=== PATIENT | female | born 1985 | race Caucasian/White ===

== ENCOUNTER → 2017-05-30 | Outpatient (CLI) | payer OTHER ==
[~2017-05-30] MED LIST: MTR600X PO; OXYC-57 PO; PRENTAB26 PO
[2017-05-30 12:12] LABS: BASO % 0.3 %; BASO ABS # 0.02 K/uL (0-0.2); EOS % 0.8 %; EOS ABS # 0.06 K/uL (0-0.5); HEMOGLOBIN 13.4 g/dL (12.0-16.0); IG# 0.02 K/uL (0.00-0.02); LYMPH % 17.2 %; LYMPH ABS # 1.36 K/uL (1.2-3.4); MEAN CELL VOLUME 91.1 fL (80-100); MEAN CORPUSCULAR HEMOGLOBIN 31.3 pg (25-34); MEAN CORPUSCULAR HGB CONC 34.4 g/dl (32-36); MEAN PLATELET VOLUME 10.9 fL (7.4-10.4); MONO % 6.6 %; MONO ABS # 0.52 K/uL (0.11-0.59); NEUT % 74.8 %; NEUT ABS # 5.93 K/uL (1.4-6.5); PLATELET COUNT 291 K/uL (130-400); RED CELL DISTRIBUTION WIDTH CV 12.4 % (11.5-14.5); RED CELL DISTRIBUTION WIDTH SD 41.3 fL (36.4-46.3); WHITE BLOOD COUNT 7.91 K/uL (4.8-10.8)
== END | disposition home or self-care (01) ==
LOC: C.LAB1850 10:29
PROVIDERS: ATTEND Obstetrics & Gynecology
DX: Z34.81 Encounter for supervision of other normal pregnancy, first trimester (principal)

== ENCOUNTER 2017-06-23 10:17 | Emergency (ER) | payer OTHER ==
[~2017-06-23] VITALS: Ht 157.5 cm; Wt 65.2 kg
[~2017-06-23 10:17] MED LIST changes: -MTR600X PO; -OXYC-57 PO
[2017-06-23 10:18] VITALS: TEMP 36.9; Ht 157.5 cm; Wt 65.2 kg
[2017-06-23] MEDS ORDERED: ACETAMINOPHEN 500 MG TAB PO STA (10:54)
[2017-06-23] MEDS ORDERED: ONDANSETRON INJ 2 MG/ML 2 ML VIAL IV STA (10:54)
[2017-06-23] MEDS ORDERED: MoRPHine SULFATE 4 MG/ML 1 ML CARP\\VIAL IV STA (10:54)
--- NOTE | 2017-06-23 10:55 | EMERGENCY ROOM VISIT NOTE ---
History Report prepared by Roland: Juan Crespo Under the Supervision of: Dr. Roman Caicedo M.D. First contact with patient: 10:31 Chief Complaint: KIDNEY STONE Stated Complaint: L SIDED BACK PAIN, KIDNEY STONES History of Present Illness The patient is a 31 year old white female with a past medical history of 13 weeks who presents to the ED with a cc of worsening on and off left sided back pain beginning last night that radiates into her abdomen that is worse with urination. Positive vomiting this morning and pain with urination. Negative vaginal bleeding or hematuria. She denies any past surgeries, alcohol use, tobacco use, and drug use. Source of History: patient Onset: last night Position: back (left lower) Timing: worsening, other (on and off) Modifying Factors (Worsening): urination Associated Symptoms: + vomiting, + abdominal pain, + urinary symptoms Review of Systems See HPI for pertinent positives and negatives. A total of ten systems were reviewed and were otherwise negative. Past Medical & Surgical Medical Problems: (1) No Known Active Medical Problems Family History FH: cancer FHx: hypertension Pulmonary embolism Social History Smoking Status: Never Smoker Marital Status: Housing Status: lives with family Occupation Status: employed Current/Historical Medications Scheduled Multivit/Min/Iron/Fol Ac/Pren ( Vitamin), 1 TAB PO 4XWK Allergies Coded Allergies: No Known Allergies (Unverified , 06/23/17) Physical Exam Vital Signs Date Time Temp Pulse Resp B/P (MAP) Pulse Ox O2 Delivery O2 Flow Rate FiO2 06/23/17 14:16 69 16 105/63 99 Room Air 06/23/17 12:28 71 16 103/60 96 Room Air 06/23/17 12:21 65 06/23/17 10:18 36.9 75 18 120/71 99 Room Air Physical Exam GENERAL: Awake, alert, well-appearing, NAD HENT: Normocephalic, atraumatic. EYES: Normal conjunctiva. Sclera non-icteric. NECK: Supple. No nuchal rigidity. FROM. RESPIRATORY: CTAB, no rhonchi, wheezing, crackles CARDIAC: RRR, no MRG ABDOMEN: Left flank discomfort. Fundal height below the umbilicus. Soft, NTND, BS+ MSK: No chest wall TTP, no LE edema NEURO: GCS 15, CN 2-12 intact, moves all 4s on command SKIN: No rash or jaundice noted. Medical Decision & Procedures ER Provider Diagnostic Interpretation: Radiology results as stated below per my review and radiologist interpretation: ULTRASOUND KIDNEYS AND BLADDER CLINICAL HISTORY: Flank pain. COMPARISON STUDY: No priors. TECHNIQUE: Real-time, grayscale, and color flow sonography of the kidneys and bladder is performed. Images are reviewed in the transverse and longitudinal planes. FINDINGS: Kidneys: The kidneys are normal in size and echotexture. The right kidney measures 11.1 cm in length and the left kidney measures 11.8 cm in length. There is no hydronephrosis. No shadowing renal calculi are identified. A 5 mm echogenic focus in the right lower pole may present a tiny angiomyolipoma. There is no sonographic evidence of contour deforming renal mass lesion. No perinephric fluid is identified. Bladder: The bladder is normal in appearance. Bilateral ureteral jets were seen. IMPRESSION: Unremarkable sonographic assessment of the kidneys and bladder. Electronically signed by: Aly Magana M.D. 06/23/2017 1:20 PM Dictated Date/Time: 06/23/2017 1:19 PM Laboratory Results 06/23/17 11:05 Red Blood Count 4.17, Mean Corpuscular Volume 90.2, Mean Corpuscular Hemoglobin 31.4, Mean Corpuscular Hemoglobin Concent 34.8, Mean Platelet Volume 10.5, Neutrophils (%) (Auto) 84.1, Lymphocytes (%) (Auto) 10.9, Monocytes (%) (Auto) 4.3, Eosinophils (%) (Auto) 0.2, Basophils (%) (Auto) 0.2, Neutrophils # (Auto) 8.34, Lymphocytes # (Auto) 1.08, Monocytes # (Auto) 0.43, Eosinophils # (Auto) 0.02, Basophils # (Auto) 0.02 06/23/17 11:05 Test 06/23/17 11:05 06/23/17 11:39 06/23/17 13:13 White Blood Count 9.92 K/uL (4.8-10.8) Red Blood Count 4.17 M/uL (4.2-5.4) Hemoglobin 13.1 g/dL (12.0-16.0) Hematocrit 37.6 % (37-47) Mean Corpuscular Volume 90.2 fL (80-100) Mean Corpuscular Hemoglobin 31.4 pg (25-34) Mean Corpuscular Hemoglobin Concent 34.8 g/dl (32-36) Platelet Count 256 K/uL (130-400) Mean Platelet Volume 10.5 fL (7.4-10.4) Neutrophils (%) (Auto) 84.1 % Lymphocytes (%) (Auto) 10.9 % Monocytes (%) (Auto) 4.3 % Eosinophils (%) (Auto) 0.2 % Basophils (%) (Auto) 0.2 % Neutrophils # (Auto) 8.34 K/uL (1.4-6.5) Lymphocytes # (Auto) 1.08 K/uL (1.2-3.4) Monocytes # (Auto) 0.43 K/uL (0.11-0.59) Eosinophils # (Auto) 0.02 K/uL (0-0.5) Basophils # (Auto) 0.02 K/uL (0-0.2) RDW Standard Deviation 41.0 fL (36.4-46.3) RDW Coefficient of Variation 12.7 % (11.5-14.5) Immature Granulocyte % (Auto) 0.3 % Immature Granulocyte # (Auto) 0.03 K/uL (0.00-0.02) Anion Gap 8.0 mmol/L (3-11) Est Creatinine Clear Calc Drug Dose 143.0 ml/min Estimated GFR () 149.6 Estimated GFR (Non- 129.0 BUN/Creatinine Ratio 12.4 (10-20) Calcium Level 9.0 mg/dl (8.5-10.1) Urine Color YELLOW Urine Appearance CLEAR (CLEAR) Urine pH 7.5 (4.5-7.5) Urine Specific [place] 1.009 (1.000-1.030) Urine Protein NEG (NEG) Urine Glucose (UA) NEG (NEG) Urine Ketones NEG (NEG) Urine Occult Blood NEG (NEG) Urine Nitrite NEG (NEG) Urine Bilirubin NEG (NEG) Urine Urobilinogen NEG (NEG) Urine Leukocyte Esterase TRACE (NEG) Urine WBC (Auto) 1-5 /hpf (0-5) Urine RBC (Auto) 0-4 /hpf (0-4) Urine Hyaline Casts (Auto) 0 /lpf (0-5) Urine Epithelial Cells (Auto) 20-30 /lpf (0-5) Urine Bacteria (Auto) NEG (NEG) Human Chorionic Gonadotropin, Quant 69487 mIU/mL Laboratory results reviewed by [place] Course 1031: The patient was evaluated in room C4. A complete history and physical exam was performed. 1228: I reevaluated the patient, and she was having no pain and waiting for her ultrasound 1345: I reevaluated the patient, and she was doing well. 1410: I reevaluated the patient. Discussed results and discharge instructions: she verbalized understanding and agreement. The patient is ready for discharge. Medical Decision The patient is a 31 year old white female with a past medical history of 13 weeks who presents to the ED with a cc of worsening on and off left sided back pain beginning last night that radiates into her abdomen that is worse with urination. Differential diagnosis: Etiologies such as renal colic, appendicitis, diverticulitis, mesenteric ischemia, aortic pathology, infections, inflammatory bowel disease, PUD, biliary pathology, UTI, as well as others were entertained. Patient was seen and evaluated the bedside. Patient is a 002 that approximately 13 weeks by LMP presents with a chief complaint of left flank pain. Patient states the pain has been worsening. Patient Nexus may be kidney stone. Patient denies any hematuria or dysuria. Patient does have some mild left-sided CVA TTP. Patient does not have any noted abdominal tenderness. Patient has complained of some mild nausea. Bedside ultrasound did show a single IUP with a heart rate of 152. Bilateral kidneys did show question a trace hydronephrosis but nothing obvious. Bladder was fairly decompressed. Patient did have blood work completed, urinalysis and a retroperitoneal ultrasound. Patient was also given pain and nausea medications. White blood cell count of 9000. Patient's work fairly unremarkable. Patient's urinalysis negative for blood or infection. Patient's ultrasound showed ureteral jets and no signs of hydronephrosis. 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 Patient does have an appointment on Friday. Patient had no recurrence of her pain. This may be a muscular skeletal or some round ligament type pain. We also discussed that the stone that had passed. Patient was deemed suitable for outpatient follow- up and treatment at this time. Patient was given strict follow-up, discharge, and return precautions. All questions were answered. Patient was deemed suitable for outpatient follow-up at this time. Patient agreed with the plan of care and was safely discharged home. The chart was completed utilizing [employer] Speech voice recognition software. Grammatical errors, random word insertions, pronoun errors, and incomplete sentences are an occasional consequence of this system due to software limitations, ambient noise, and hardware issues. Any formal questions or concerns about the content, text, or information contained within the body of this dictation should be directly addressed to the physician for clarification. Medication Reconcilliation Current Medication List: was personally reviewed by me Blood Pressure Screening Patient's blood pressure: Normal blood pressure Impression Primary Impression: Left flank pain Additional Impression: and not yet delivered in second trimester Scribe Attestation The scribe's documentation has been prepared under my direction and personally reviewed by me in its entirety. I confirm that the note above accurately reflects all work, treatment, procedures, and medical decision making performed by me. Departure Information Dispostion Home / Self-Care Referrals No Doctor, Assigned (PCP) Forms HOME CARE DOCUMENTATION FORM, IMPORTANT VISIT INFORMATION Patient Instructions ED Flank Pain Uncertain Cause, My [facility] Additional Instructions Please return to the emergency department if you have worsening or recurrent symptoms not amenable to at-home treatment. Please call for a follow-up appointment with her primary care physician. Please take your medications as prescribed. If you have other concerns and/or complaints please feel free to also call your primary care physician's office or return the ED for further evaluation, management, and treatment. You may take tylenol 1000 mg every 6 hours as needed for pain. Take your medications as prescribed. If taking an antibiotic consider taking a probiotic and/or eating yogurt, but at the least, please take with food as it can cause upset stomach. If culture results are not available at discharge, if they are positive for concern of infection, you will be informed of the results as soon as they are available. If you were seen between 11pm and 7AM all radiology reads will be re-read by our in house staff. If any eliu You have been examined and treated today on an emergency basis only. This is not a substitute for, or an effort to provide, complete comprehensive medical care. It is impossible to recognize and treat all injuries or illnesses in a single emergency department visit. It is therefore important that you follow up closely with [facility], your PCP, and/or yor discrepancies are discovered, you will be notified.ur specialist(s). Call as soon as possible for an appointment. Thank you for your time and consideration. I look forward to speaking with you again soon. Please don't hesitate to call us if you have any questions. Problem Qualifiers
[2017-06-23 11:31] LABS: BASO % 0.2 %; BASO ABS # 0.02 K/uL (0-0.2); EOS % 0.2 %; EOS ABS # 0.02 K/uL (0-0.5); HEMATOCRIT 37.6 % (37-47); HEMOGLOBIN 13.1 g/dL (12.0-16.0); IG# 0.03 K/uL (0.00-0.02); LYMPH % 10.9 %; LYMPH ABS # 1.08 K/uL (1.2-3.4); MEAN CELL VOLUME 90.2 fL (80-100); MEAN CORPUSCULAR HEMOGLOBIN 31.4 pg (25-34); MEAN CORPUSCULAR HGB CONC 34.8 g/dl (32-36); MEAN PLATELET VOLUME 10.5 fL (7.4-10.4); MONO % 4.3 %; MONO ABS # 0.43 K/uL (0.11-0.59); NEUT % 84.1 %; NEUT ABS # 8.34 K/uL (1.4-6.5); PLATELET COUNT 256 K/uL (130-400); RED CELL DISTRIBUTION WIDTH CV 12.7 % (11.5-14.5); WHITE BLOOD COUNT 9.92 K/uL (4.8-10.8)
[2017-06-23 11:52] LABS: CREATININE 0.51 mg/dl (0.60-1.20); POTASSIUM 3.5 mmol/L (3.5-5.1)
--- NOTE | 2017-06-23 13:21 | DIAGNOSTIC IMAGING REPORT ---
ULTRASOUND KIDNEYS AND BLADDER CLINICAL HISTORY: Flank pain. COMPARISON STUDY: No priors. TECHNIQUE: Real-time, grayscale, and color flow sonography of the kidneys and bladder is performed. Images are reviewed in the transverse and longitudinal planes. FINDINGS: Kidneys: The kidneys are normal in size and echotexture. The right kidney measures 11.1 cm in length and the left kidney measures 11.8 cm in length. There is no hydronephrosis. No shadowing renal calculi are identified. A 5 mm echogenic focus in the right lower pole may present a tiny angiomyolipoma. There is no sonographic evidence of contour deforming renal mass lesion. No perinephric fluid is identified. Bladder: The bladder is normal in appearance. Bilateral ureteral jets were seen. IMPRESSION: Unremarkable sonographic assessment of the kidneys and bladder. Electronically signed by: Aly Magana M.D. 06/23/2017 1:20 PM Dictated Date/Time: 06/23/2017 1:19 PM
[2017-06-23 14:16] VITALS: BP 105/63; PULSE 69; O2SAT 99
== END 2017-06-23 14:32 | disposition home or self-care (01) ==
LOC: C.EDB 10:18 → C.EDC 14:32
DX: R10.9 Unspecified abdominal pain (principal); O26.892 Other specified pregnancy related conditions, second trimester; Z3A.13 13 weeks gestation of pregnancy; Z80.9 Family history of malignant neoplasm, unspecified; Z82.49 Family history of ischemic heart disease and other diseases of the circulatory system

== ENCOUNTER → 2017-07-24 | Outpatient (CLI) | payer OTHER | END | disposition home or self-care (01) | LOC: C.LAB1850 10:38 | PROVIDERS: ATTEND Obstetrics & Gynecology | DX: Z34.82 Encounter for supervision of other normal pregnancy, second trimester (principal) ==

== ENCOUNTER → 2017-10-09 | Outpatient (CLI) | payer OTHER ==
[2017-10-09 12:11] LABS: HEMATOCRIT 34.7 % (37-47); HEMOGLOBIN 11.8 g/dL (12.0-16.0)
== END | disposition home or self-care (01) ==
LOC: C.LAB1850 09:11
PROVIDERS: ATTEND Obstetrics & Gynecology
DX: Z34.83 Encounter for supervision of other normal pregnancy, third trimester (principal); Z3A.00 Weeks of gestation of pregnancy not specified

== ENCOUNTER 2017-12-25 09:59 | Inpatient (IN) | payer OTHER ==
[~2017-12-25] VITALS: Ht 160 cm; Wt 73.0 kg
[2017-12-25] MEDS ORDERED: LACTATED RINGER'S 1000ML 1,000 ML IV PRN (10:40)
[2017-12-25] MEDS ORDERED: LACTATED RINGER'S 1000ML 500 ML IV PRN ×2 (10:50→18:12)
[2017-12-25] MEDS ORDERED: PENICILLIN G POTASSIUM IV 6 MU in DEXTROSE 5% 250ML 250 ML IV ONE (11:00)
[2017-12-25] MEDS ORDERED: OXYTOCIN 30 UNITS/500ML NSS IV PRN (11:00)
[2017-12-25] MEDS: LACTATED RINGER'S 1000ML 1,000 ML IV SCH ×2 (11:05→14:14)
[2017-12-25 11:19] LABS: HEMATOCRIT 36.4 % (37-47); HEMOGLOBIN 12.2 g/dL (12.0-16.0); MEAN CELL VOLUME 90.3 fL (80-100); MEAN CORPUSCULAR HEMOGLOBIN 30.3 pg (25-34); PLATELET COUNT 219 K/uL (130-400); RED CELL DISTRIBUTION WIDTH CV 13.4 % (11.5-14.5); RED CELL DISTRIBUTION WIDTH SD 43.9 fL (36.4-46.3); WHITE BLOOD COUNT 9.27 K/uL (4.8-10.8)
[2017-12-25 11:24] LABS: MEAN CORPUSCULAR HGB CONC 33.5 g/dl (32-36)
[2017-12-25 11:31] VITALS: Ht 160 cm; Wt 73.0 kg
[2017-12-25] MEDS ORDERED: PENICILLIN G POTASSIUM IV 3 MU in DEXTROSE 5% 100ML 100 ML IV PRN (15:00)
[2017-12-25] MEDS ORDERED: LACTATED RINGER'S 1000ML 1,000 ML IV ONE (16:14)
[2017-12-25] MEDS ORDERED: CITRIC ACID/SODIUM CITRATE 15 ML UDC PO ONE (16:15)
[2017-12-25] MEDS ORDERED: CEFAZOLIN IV 2,000 MG in SYRINGE 0 ML IV ONE (16:30)
[2017-12-25] MEDS ORDERED: METOCLOPRAMIDE HCL INJ 5 MG/ML 2 ML VIAL ONE (16:42)
[2017-12-25] MEDS ORDERED: EpHEDrine SULFATE INJ 50 MG/ML AMP ONE (16:42)
[2017-12-25] MEDS ORDERED: MoRPHine SULFATE PF 1 MG/ML 10 ML AMP/VIAL ONE (16:42)
[2017-12-25] MEDS ORDERED: PHENYLEPHRINE HCL INJ 10 MG/ML VIAL ONE (16:42)
[2017-12-25] MEDS ORDERED: FENTANYL CITRATE INJ 50 MCG/1 ML 2 ML VIAL ONE (16:42)
[2017-12-25] MEDS ORDERED: OXYTOCIN INJ 10 UNITS/ML VIAL ONE (16:42)
[2017-12-25] MEDS ORDERED: ONDANSETRON INJ 2 MG/ML 2 ML VIAL ONE (16:42)
[2017-12-25] MEDS ORDERED: LACTATED RINGER'S 1000ML 1,000 ML IV SCH (18:05)
--- NOTE | 2017-12-25 18:05 | [facility] Post Operative Brief Note ---
Immediate Operative Summary Operative Date Dec 25, 2017. Pre-Operative Diagnosis 39 weeks, External cephalic version, Persistant Category 3 tracing, Concern for abruption Post-Operative Diagnosis Same as PreOp Procedure(s) Performed Primary low transverse section Surgeon Anselmo Robles DO Family Physician Surgeon(s) Igor Rangel RN Estimated Blood Loss 500ml Findings Consistent with Post-Op Diagnosis Viable female , Apgars 8, 10. Weight 5#14 Fluids (cc crystalloids) 2L Specimens Cord Blood, cord gases Drains [place], clear yellow 150cc Anesthesia Type Spinal Complication(s) none Disposition Accompanied Pt To Recover: no Disposition: L&D
[2017-12-25] MEDS ORDERED: SODIUM CHLORIDE 0.9% 1000ML 1,000 ML IV PRN (18:12)
[2017-12-25] MEDS ORDERED: NALOXONE HCL INJ 1 MG in SODIUM CHLORIDE 0.9% 1000ML 1,000 ML IV PRN ×4 (18:12)
[2017-12-25] MEDS ORDERED: NALOXONE HCL INJ 0.08 MG in SYRINGE 1.8 ML IV PRN (18:12)
[2017-12-25] MEDS ORDERED: NO NARCOTICS OR SEDATIVES SCH (18:15)
[2017-12-25] MEDS ORDERED: BENZOCAINE 20% AER SPR 82.5 GM CAN EXT PRN (18:15)
[2017-12-25] MEDS ORDERED: ONDANSETRON INJ 2 MG/ML 2 ML VIAL IV PRN ×2 (18:15)
[2017-12-25] MEDS ORDERED: MEPERIDINE HCL 25 MG/ML CARP IV PRN (18:15)
[2017-12-25] MEDS ORDERED: SUPERCREAM 0.870 % 15GM JAR EXT PRN (18:15)
[2017-12-25] MEDS ORDERED: MAGNESIUM HYDROXIDE SUSP 30 ML UDC PO PRN (18:15)
[2017-12-25] MEDS ORDERED: PROMETHAZINE HCL INJ 25 MG in SODIUM CHLORIDE 0.9% 50ML 50 ML IV PRN ×2 (18:15)
[2017-12-25] MEDS ORDERED: EpHEDrine SULFATE INJ 50 MG/ML AMP IV PRN ×2 (18:15)
[2017-12-25] MEDS ORDERED: HYDROCORTISONE ACETATE 25 MG SUPP PR PRN (18:15)
[2017-12-25] MEDS ORDERED: LANOLIN OINT EXT PRN (18:15)
[2017-12-25] MEDS ORDERED: MoRPHine SULFATE 2 MG/ML CARP IV PRN (18:15)
[2017-12-25] MEDS ORDERED: KETOROLAC TROMETHAMINE 30 MG/ML VIAL IV. PRN (18:15)
[2017-12-25] MEDS ORDERED: NALBUPHINE HCL INJ 10 MG/ML 10ML VIAL IV PRN (18:15)
[2017-12-25] MEDS ORDERED: DiphenhydrAMINE HCL 50 MG/ML VIAL IV PRN ×2 (18:15)
[2017-12-25] MEDS ORDERED: ATROPINE SULFATE 0.1 MG/ML 5ML SYR IV PRN (18:15)
[2017-12-25] MEDS ORDERED: NALOXONE HCL 0.4 MG/1 ML VIAL/CARP IV PRN (18:15)
[2017-12-25] MEDS ORDERED: DC INTRASPINAL MORPHINE SCH (18:15)
[2017-12-25] MEDS ORDERED: MoRPHine SULFATE PF 1 MG/ML 10 ML AMP/VIAL EPI PRN (18:15)
[2017-12-25] MEDS ORDERED: OXYCODONE/ACETAMINOPHEN 5-325 TAB PO PRN ×2 (18:15)
--- NOTE | 2017-12-25 18:15 | Anesthesiology Progress Note ---
Anesthesia Post Op Note Date & Time Dec 25, 2017 at 18:14 Notes Mental Status: alert / awake / arousable, participated in evaluation Pt Amnestic to Procedure: Yes Nausea / Vomiting: adequately controlled Pain: adequately controlled Airway Patency, RR, SpO2: stable & adequate BP & HR: stable & adequate Hydration State: stable & adequate Neuraxial Anesthesia: was administered, sensory block is resolving Anesthetic Complications: no major complications apparent
--- NOTE | 2017-12-25 18:22 | [facility] Operative Report ---
Operative Report Operative Date Dec 25, 2017. Pre-Operative Diagnosis 39 weeks, External cephalic version, Persistant Category 3 tracing, Concern for abruption Post-Operative Diagnosis Same as PreOp Procedure(s) Performed Primary low transverse section Surgeon Anselmo Robles DO Narcotics And Vice Detective Surgeon(s) Igor Rangel RN Estimated Blood Loss 500ml Findings Viable female , Apgars 8, 10. Weight 5#14 Fluids 2L Specimens Cord Blood, cord gases Drains [place], clear yellow 150cc Anesthesia Type Spinal Complication(s) none Disposition no L&D Indications 32-year-old G 3 p2002 at 39 weeks 0 days who presented from the office today after a routine visit and was found to have transverse lie of the fetus. External cephalic version was performed, this was successful in turning baby to a cephalic presentation and Pitocin was started. The baby began to have persistent category 3 tracing with recurrent late decelerations. This was not alleviated by resuscitative measures. I recommended to patient that, since station was still high and she was only dilated to 3 cm, and the nonreassuring tracing, that we proceed to delivery by section. She was agreeable. Description of Procedure Patient was seen in her labor and delivery room, where risks benefits and alternatives to section were discussed. Informed consent was obtained. We proceeded to the operating room. She underwent spinal anesthesia , and was prepared and draped in the usual sterile fashion. Adequate anesthesia was confirmed. Timeout was confirmed. A Pfannenstiel skin incision was made with a scalpel and carried through to the underlying layer of fascia. The fascia was nicked at midline, and this incision was extended bilaterally using blunt dissection. The superior aspect of the fascial incision was grasped with [place] clamps 2, elevated off the underlying rectus abdominis muscles, and bluntly dissected. In a similar fashion, the inferior aspect of this incision was dissected. The rectus abdominis muscles were at midline, and the peritoneum was entered bluntly digitally. This incision was extended bluntly. A bladder flap was created, the bladder blade was replaced. The low transverse uterine incision was made with a new scalpel, and this incision was extended manually. The baby was delivered from a cephalic presentation, the head was delivered followed by anterior and posterior shoulders, followed by body. Baby began to cry on the field. The cord was doubly clamped and cut, the baby was then handed off to the waiting rubber block layer. A cord sample was obtained for cord gases. Cord blood was obtained, and the placenta was then delivered spontaneously intact with a three-vessel cord. The uterus was then exteriorized , it was cleared of all clots and debris, and was firming nicely. Pitocin was started. The hysterotomy incision was reapproximated using a running locked stitch of 0 Vicryl. A second layer of the same suture was used to imbricate the incision. The posterior uterus was evaluated and found to be normal, the hysterotomy was observed and found to be hemostatic. The uterus was returned to the abdomen, the hysterotomy incision was again reviewed and found to be hemostatic. The gutters were cleared of all clots and debris. The fascial incision was reapproximated using 0 Vicryl in a running stitch. The subcutaneous tissue was irrigated. It was then reapproximated using 2-0 plain gut suture in a running stitch. The skin was reapproximated using 4-0 Vicryl in a running subcuticular stitch. Steri-Strips and a dressing were applied. Patient and baby tolerated the delivery well. Sponge, instrument, needle counts were correct at the conclusion of the case 2. I attest to the content of the Intraoperative Record and any orders documented therein. Any exceptions are noted below.
[2017-12-25] MEDS: OXYTOCIN INJ 30 UNITS in LACTATED RINGER'S 1000ML 1,000 ML IV SCH (18:55)
[2017-12-25 20:50] VITALS: BP 123/47; PULSE 73; TEMP 36.6; O2SAT 99
[2017-12-25 21:45] VITALS: O2SAT 100
[2017-12-25] MEDS: DOCUSATE SODIUM 100 MG CAP PO SCH (21:47)
[2017-12-25] MEDS: SIMETHICONE 80 MG CHEW PO SCH (21:48)
[2017-12-25 23:05] VITALS: O2SAT 99
[2017-12-25 23:30] VITALS: BP 114/63; PULSE 71; TEMP 37; O2SAT 98
[2017-12-26] VITALS (13 sets, daily range): BP systolic 107–122; BP diastolic 61–67; PULSE 61–73; TEMP 36.3–36.8; O2SAT 97–100
[2017-12-26] MEDS: KETOROLAC TROMETHAMINE 30 MG/ML VIAL IV. PRN ×2 (01:20→07:38)
[2017-12-26] MEDS: OXYTOCIN INJ 30 UNITS in LACTATED RINGER'S 1000ML 1,000 ML IV SCH (03:28)
[2017-12-26] MEDS ORDERED: CEFAZOLIN IV 2,000 MG in DEXTROSE 5% 50ML 50 ML IV SCH (06:00)
[2017-12-26 06:59] LABS: BASO % 0.1 %; BASO ABS # 0.01 K/uL (0-0.2); EOS % 0.3 %; EOS ABS # 0.04 K/uL (0-0.5); HEMATOCRIT 32.4 % (37-47); IG# 0.03 K/uL (0.00-0.02); LYMPH % 8.5 %; MEAN CELL VOLUME 90.8 fL (80-100); MEAN CORPUSCULAR HEMOGLOBIN 30.8 pg (25-34); MEAN PLATELET VOLUME 11.1 fL (7.4-10.4); MONO % 6.8 %; NEUT ABS # 9.83 K/uL (1.4-6.5); PLATELET COUNT 174 K/uL (130-400); RED CELL DISTRIBUTION WIDTH CV 13.4 % (11.5-14.5); WHITE BLOOD COUNT 11.71 K/uL (4.8-10.8)
--- NOTE | 2017-12-26 07:03 | Progress Note ---
Subjective Dec 26, 2017. Subjective conversation w/ patient, conversation w/ family, physical exam, chart review, lab review Ambulation: limited ambulation Voiding: ramires catheter in place Passing Gas: No Diet Tolerance: Clear Liquids Lochia: Small Feeding Type: Breast Feeding Problem List Medical Problems: (1) 39 weeks gestation of (2) No Known Active Medical Problems Review of Systems Constitutional: No fever, No chills Respiratory: No cough, No wheezing, No shortness of breath Cardiac: No chest pain Abdomen: No nausea, No vomiting Objective Vital Signs Date Time Temp Pulse Resp B/P (MAP) Pulse Ox O2 Delivery O2 Flow Rate FiO2 12/26/17 06:47 16 100 12/26/17 03:00 36.8 72 16 107/61 (76) 99 Room Air 12/26/17 03:00 16 99 12/26/17 02:15 18 100 12/26/17 01:15 18 97 12/26/17 00:05 16 99 12/25/17 23:30 98 Room Air 12/25/17 23:30 18 98 12/25/17 23:30 37.0 71 18 114/63 (80) 98 Room Air 12/25/17 23:05 18 99 12/25/17 21:45 18 100 12/25/17 20:50 99 Room Air 12/25/17 20:50 20 99 12/25/17 20:50 36.6 73 20 123/47 (72) 99 Room Air 12/25/17 20:50 99 Room Air Physical Exam General Appearance: WELL-APPEARING, WD/WN Respiratory/Chest: lungs clear, normal breath sounds, no respiratory distress, no accessory muscle use Cardiovascular: regular rate, rhythm, no gallop, no murmur Abdomen: normal bowel sounds Extremities: + pedal edema Laboratory Results Last 24 Hours Test 12/25/17 10:55 12/26/17 06:30 White Blood Count 9.27 K/uL 11.71 K/uL Red Blood Count 4.03 M/uL 3.57 M/uL Hemoglobin 12.2 g/dL 11.0 g/dL Hematocrit 36.4 % 32.4 % Mean Corpuscular Volume 90.3 fL 90.8 fL Mean Corpuscular Hemoglobin 30.3 pg 30.8 pg Mean Corpuscular Hemoglobin Concent 33.5 g/dl 34.0 g/dl RDW Standard Deviation 43.9 fL 44.0 fL RDW Coefficient of Variation 13.4 % 13.4 % Platelet Count 219 K/uL 174 K/uL Mean Platelet Volume 11.0 fL 11.1 fL Neutrophils (%) (Auto) 84.0 % Lymphocytes (%) (Auto) 8.5 % Monocytes (%) (Auto) 6.8 % Eosinophils (%) (Auto) 0.3 % Basophils (%) (Auto) 0.1 % Neutrophils # (Auto) 9.83 K/uL Lymphocytes # (Auto) 1.00 K/uL Monocytes # (Auto) 0.80 K/uL Eosinophils # (Auto) 0.04 K/uL Basophils # (Auto) 0.01 K/uL Immature Granulocyte % (Auto) 0.3 % Immature Granulocyte # (Auto) 0.03 K/uL Medications Current Inpatient Medications Medications (Trade) Dose Ordered Sig/Reyna Route Start Time Stop Time Status Last Admin Dose Admin Penicillin G Potassium 3 mu/ Dextrose 106 ml @ 100 mls/hr Q4H PRN IV 12/25/17 15:00 12/27/17 14:59 12/25/17 15:06 100 MLS/HR Lactated Ringer's 1,000 ml @ 125 mls/hr Q8H IV 12/25/17 10:40 12/27/17 10:39 12/25/17 14:14 125 MLS/HR Lactated Ringer's 1,000 ml @ 999 mls/hr Q1H1M PRN IV 12/25/17 10:40 01/24/18 10:39 Oxytocin (Pitocin IV) 30 units UD PRN IV 12/25/17 11:00 01/24/18 10:59 12/25/17 13:53 30 UNITS Lactated Ringer's 500 ml @ 999 mls/hr Q31M PRN IV 12/25/17 10:50 01/24/18 10:49 Oxytocin 30 units/ Lactated Ringer's 1,003 ml @ 125 mls/hr Q8H2M IV 12/25/17 18:05 01/24/18 18:04 12/26/17 03:28 125 MLS/HR Lactated Ringer's 1,000 ml @ 125 mls/hr Q8H IV 12/25/17 18:05 01/24/18 18:04 Ibuprofen (Motrin Tab) 600 mg Q4H PRN PO 12/25/17 18:15 01/24/18 18:14 Promethazine HCl 25 mg/Sodium Chloride 51 ml @ 204 mls/hr Q4H PRN IV 12/25/17 18:15 01/24/18 18:14 Bisacodyl (Dulcolax Tab) 5 mg HS ONCE PO 12/26/17 22:00 12/26/17 22:01 Docusate Sodium (coLACE CAP) 100 mg BID PO 12/25/17 20:00 01/24/18 19:59 Magnesium Hydroxide (Milk Of Magnesia Susp) 30 ml HS PRN PO 12/25/17 18:15 01/24/18 18:14 Cocaine HCl (Supercream 0.870% Cr) BID PRN EXT 12/25/17 18:15 01/08/18 18:14 Lanolin (Lanolin Oint) PRN PRN EXT 12/25/17 18:15 01/24/18 18:14 Hydrocortisone Acetate (Anusol Hc Supp) 25 mg BID PRN OR 12/25/17 18:15 01/24/18 18:14 Benzocaine (Dermoplast Aero Spr) 1 appln PRN PRN EXT 12/25/17 18:15 01/24/18 18:14 Simethicone (Mylicon Chew Tab) 80 mg QID PO 12/25/17 20:51 01/24/18 20:59 Naloxone HCl (Narcan Inj) 0.1 mg UD PRN IV 12/25/17 18:15 12/26/17 12:00 Diphenhydramine HCl (Benadryl Inj) 25 mg Q6H PRN IV 12/25/17 18:15 12/26/17 12:00 Nalbuphine HCl (Nubain Inj) 5 mg Q10M PRN IV 12/25/17 18:15 12/26/17 12:00 Naloxone HCl 1 mg/ Sodium Chloride 1,002.5 ml @ 50 mls/hr Q20H3M PRN IV 12/25/17 18:12 12/26/17 12:00 Ondansetron HCl (Zofran Inj) 4 mg Q6H PRN IV 12/25/17 18:15 12/26/17 12:00 Promethazine HCl 25 mg/Sodium Chloride 51 ml @ 200 mls/hr Q6H PRN IV 12/25/17 18:15 12/26/17 12:00 Naloxone HCl 1 mg/ Sodium Chloride 1,002.5 ml @ 50 mls/hr Q20H3M PRN IV 12/25/17 18:12 12/26/17 12:00 Ketorolac Tromethamine (Toradol Inj) 30 mg Q6H PRN IV. 12/25/17 18:15 12/26/17 12:00 12/26/17 01:20 30 MG Meperidine HCl (Demerol Inj) 25 mg Q15M PRN IV 12/25/17 18:15 12/26/17 12:00 Miscellaneous Information (Dc Intraspinal Morphine) 1 ea ONE N/A 12/25/17 18:15 12/26/17 12:00 Miscellaneous Information (No Narcotics Or Sedatives) 1 ea UD N/A 12/25/17 18:15 12/26/17 12:00 Naloxone HCl 0.08 mg/Syringe 2 ml @ 1 mls/min Q2M PRN IV 12/25/17 18:12 12/26/17 12:00 Diphenhydramine HCl (Benadryl Cap) 50 mg HS PRN PO 12/25/17 18:15 12/26/17 12:00 Morphine Sulfate (MoRPHine SULFATE INJ) 2 mg Q6H PRN IV 12/25/17 18:15 12/26/17 12:00 Lactated Ringer's 500 ml @ 999 mls/hr Q31M PRN IV 12/25/17 18:12 12/26/17 12:00 Ephedrine Sulfate (EpHEDrine SULFATE INJ) 10 mg Q5M PRN IV 12/25/17 18:15 12/26/17 12:00 Morphine Sulfate (Duramorph Pf Inj) TODAY PRN EPI 12/25/17 18:15 12/26/17 12:00 Sodium Chloride 1,000 ml @ 15 mls/hr Q24H PRN IV 12/25/17 18:12 12/26/17 12:00 Ketorolac Tromethamine (Toradol Inj) 30 mg Q6H PRN IV. 12/26/17 12:00 12/31/17 11:59 Oxycodone/ Acetaminophen (Percocet 5-325mg Tab) 1 tab Q4H PRN PO 12/26/17 12:00 01/09/18 11:59 Oxycodone/ Acetaminophen (Percocet 5-325mg Tab) 2 tab Q4H PRN PO 12/26/17 12:00 01/09/18 11:59 Ondansetron HCl (Zofran Inj) 4 mg Q4H PRN IV 12/26/17 12:00 01/25/18 11:59 Diphenhydramine HCl (Benadryl Cap) 25 mg QID PRN PO 12/26/17 12:00 01/25/18 11:59 Diphenhydramine HCl (Benadryl Inj) 25 mg QID PRN IV 12/26/17 12:00 01/25/18 11:59 Assessment and Plan Problem List Medical Problems: (1) Left flank pain Status: Acute (2) Status: Acute (3) and not yet delivered in second trimester Status: Acute Post-Op Day#: 1 Continue Routine Care: - Vital signs reviewed and within normal limits - Will D/C ramires today and advance diet as tolerated - Will monitor and manage pain with PRN Analgesics - Encourage ambulation, breast feeding - All questions and concerns addressed Resident Physician Supervision Note: I was present with Dr. Thomas during the history and exam. I discussed the case with the resident and agree with the findings and plan as documented in the note. Any exceptions or clarifications are listed here: POD#1 doing well. Will plan to ambulate, advance diet, increase PO fluids. Documented By: Mi Robles
[2017-12-26] MEDS: SIMETHICONE 80 MG CHEW PO SCH ×4 (07:39→20:00)
[2017-12-26] MEDS: DOCUSATE SODIUM 100 MG CAP PO SCH ×2 (07:39→20:00)
[2017-12-26] MEDS ORDERED: KETOROLAC TROMETHAMINE 30 MG/ML VIAL IV. PRN (12:00)
[2017-12-26] MEDS ORDERED: ONDANSETRON INJ 2 MG/ML 2 ML VIAL IV PRN (12:00)
[2017-12-26] MEDS ORDERED: OXYCODONE/ACETAMINOPHEN 5-325 TAB PO PRN ×2 (12:00)
[2017-12-26] MEDS ORDERED: DiphenhydrAMINE HCL 50 MG/ML VIAL IV PRN (12:00)
[2017-12-26] MEDS: IBUPROFEN 600 MG TAB PO PRN ×3 (12:03→20:35)
[2017-12-26] MEDS ORDERED: BISACODYL 5 MG TABEC PO ONE (22:00)
[2017-12-27] MEDS: IBUPROFEN 600 MG TAB PO PRN ×6 (01:24→23:53)
[2017-12-27] MEDS ORDERED: MTR600X PO (05:53)
[2017-12-27] MEDS ORDERED: OXYC-57 PO (05:53)
--- NOTE | 2017-12-27 06:08 | Discharge Instructions ---
Discharge Instructions Date of Service Dec 27, 2017. Admission Reason for Admission: 39 Weeks Gestation Of Discharge Discharge Diagnosis / Problem: section delivery Discharge Goals Goal(s): Routine recovery after Medications Continue Dispensed Medications: lansinoh Activity Recommendations Activity Limitations: per Instructions/Follow-up section . Instructions / Follow-Up Instructions / Follow-Up ACTIVITY RECOMMENDATIONS: * Gradual return to full activity over the next 2-3 weeks. * No lifting - nothing heavier than baby over the next 2-3 weeks. * Do not engage in vigorous exercise, sexual activity or sports until cleared by your physician. * Do not drive or operate any motorized equipment until cleared by your physician. * You may shower/bathe daily. MEDICATIONS: For discomfort or pain, you may use Acetaminophen (Tylenol), Ibuprofen (Advil), or Naproxen (Aleve) following the package directions. For constipation you may use Colace following the package directions. BREAST CARE: If you are not breast feeding: * Wear a supportive bra 24 hours a day for one to two weeks. * Avoid stimulating your breasts and nipples as much as possible during the first few weeks after delivery. * When taking a shower, have the warm water hit your back, not breasts. * When your breasts feel full, apply ice packs. Usually three to four times a day helps ease the discomfort. * Take a mild pain medication (Tylenol / Motrin) when you are uncomfortable. If breast feeding: * Use breast milk to lubricate nipples. Lansinoh cream may be used for sore nipples. You do not need to remove cream prior to breast feeding. If using a different brand of cream, check the label for directions regarding removal of cream prior to nursing. * Wear a supportive bra. * If having problems with breasts or breast feeding, call a technical healthcare consultant or your health care provider. SPECIAL CARE INSTRUCTIONS: When you are discharged from the hospital, it is important for you to follow the instructions listed below: * During the first week at home, you should be able to care for yourself and your baby. In addition, the usual light household activities are encouraged. * Limit your activities to the way you feel. Do not try to clean the house or move furniture. Be sensible. * If you actively engage in sports and have done so up until the time of your delivery, you may resume these activities as soon as you feel able. This may take up to one month or even longer. Use good judgment. * Continue to take your vitamins for at least six weeks after the of your baby. * Your diet need not be limited unless you were on a special diet before your delivery. Breast-feeding mothers need around 2500 calories per day and at least 64-80 ounces of fluid per day (8 to 10 glasses). * You should eat foods from the four major food groups. Crash diets or fad diets are to be avoided. Eating lean meats, fresh fruits and vegetables, low-fat dairy products, high fiber foods and a regular exercise program, will help you get back to your pre- weight without putting your health at risk. * Constipation is sometimes a problem after delivery. Take a mild laxative as needed. If breast feeding, Milk of Magnesia is acceptable to use. You may use a suppository or Fleets enema. * A daily shower or tub bath is suggested. Wash incision daily with warm soapy water and pat dry. It doesn't need to be covered unless drainage is present. * A bloody vaginal discharge will usually continue until around four weeks . A small amount of bleeding may continue for as long as six weeks. Vaginal discharge changes from the bright red bleeding after delivery to pink then brownish and finally yellowish-pink before becoming white and disappearing. * Bleeding may increase with activity. Your first period may come in 4-8 weeks. If you are breast feeding, your period may be delayed even longer. * [place] (sex) can begin whenever both you and your partner feel comfortable and do not have any form of genital infection. It is recommended that you wait at least six weeks for internal and external healing to occur. If you have questions, please talk to your health care practitioner. A condom should be used to prevent infection and . * Foreplay, gentle intercourse and lubrication is very important the first several times to prevent pain. A water-based lubricant such as K-Y jelly or Astroglide may be used. * If you have RH negative blood and your baby is RH positive, you will receive RHOGAM by injection prior to discharge. The nurse will give you a card to keep with you that has the date and place that you received RHOGAM after delivery. * During your care, you had a Rubella screen done to check for the presence of rubella antibodies in your blood. If your test was negative, you will receive a Rubella vaccine prior to discharge. This vaccine may cause a fever, soreness at the injection site and flu-like symptoms. If these symptoms persist, notify your health care practitioner. is not advised for one month after a Rubella vaccine. * Verbalizes understanding of car seat law as reviewed with patient nursing. * Car Seat hand-out given and reviewed with patient by nursing. * Shaken baby information reviewed with patient by nursing. Call you doctor if: * Heavy bleeding (saturating several pads an hour) or passing clots the size of your fist. * A fever >101 degrees F (38.3 degrees C) on two occasions four hours apart and /or chills. * Unusual pain in the pelvic or vaginal areas. * Call the doctor for any increased redness, drainage or swelling around the incision and any pain unrelieved by prescribed pain medication. * "Baby Blues" lasting longer than two weeks. If you have any questions or concerns, call your health care practitioner at . FOLLOW UP VISIT: * Please call the office at to schedule a 6 week examination. It is important you keep this appointment. It is important for you to make arrangements for either yearly or twice yearly check-ups thereafter. Current Hospital Diet Patient's current hospital diet: Regular OB Diet Discharge Diet Recommended Diet: Regular OB Diet Procedures Procedures Performed: Primary low transverse section Pending Studies Studies pending at discharge: no Medical Emergencies . Who to Call and When: Medical Emergencies: If at any time you feel your situation is an emergency, please call 311 immediately. . Non-Emergent Contact Non-Emergency issues call your: Core Worker . . "Provider Documentation" section prepared by Tanya Beach . [place] Drug Monitoring Program Search Results: no issues identified
--- NOTE | 2017-12-27 06:47 | Progress Note ---
Subjective Dec 27, 2017. Subjective conversation w/ patient, physical exam, chart review, lab review Ambulation: ambulating normally Voiding: no voiding problems Passing Gas: Yes Diet Tolerance: Regular Diet Lochia: Small Feeding Type: Breast Feeding Problem List Medical Problems: (1) 39 weeks gestation of (2) No Known Active Medical Problems Review of Systems Constitutional: No fever Respiratory: No shortness of breath Cardiac: No chest pain Abdomen: No nausea, No vomiting Objective Vital Signs Date Time Temp Pulse Resp B/P (MAP) Pulse Ox O2 Delivery O2 Flow Rate FiO2 12/26/17 23:30 Room Air 12/26/17 23:30 36.3 67 18 122/64 (83) Room Air 12/26/17 15:35 Room Air 12/26/17 15:32 36.8 68 20 108/61 (77) Room Air 12/26/17 12:05 36.7 73 16 117/67 (84) 100 Room Air 12/26/17 11:45 16 100 12/26/17 10:43 16 100 12/26/17 09:45 16 98 12/26/17 08:45 16 99 12/26/17 07:45 Room Air 12/26/17 07:45 36.6 61 16 108/66 (80) 100 Room Air 12/26/17 07:45 16 100 12/26/17 06:47 16 100 Physical Exam General Appearance: WELL-APPEARING, WD/WN Respiratory/Chest: no respiratory distress, no accessory muscle use Fundus: Firm, Non-Tender, Relation to Umbilicus (inferior to umbilicus) Incision Description: Clean, Dry & Intact Laboratory Results Last 24 Hours Test 12/27/17 06:00 Medications Current Inpatient Medications Medications (Trade) Dose Ordered Sig/Reyna Route Start Time Stop Time Status Last Admin Dose Admin Penicillin G Potassium 3 mu/ Dextrose 106 ml @ 100 mls/hr Q4H PRN IV 12/25/17 15:00 12/27/17 14:59 12/25/17 15:06 100 MLS/HR Lactated Ringer's 1,000 ml @ 125 mls/hr Q8H IV 12/25/17 10:40 12/27/17 10:39 12/25/17 14:14 125 MLS/HR Lactated Ringer's 1,000 ml @ 999 mls/hr Q1H1M PRN IV 12/25/17 10:40 01/24/18 10:39 Oxytocin (Pitocin IV) 30 units UD PRN IV 12/25/17 11:00 01/24/18 10:59 12/25/17 13:53 30 UNITS Lactated Ringer's 500 ml @ 999 mls/hr Q31M PRN IV 12/25/17 10:50 01/24/18 10:49 Oxytocin 30 units/ Lactated Ringer's 1,003 ml @ 125 mls/hr Q8H2M IV 12/25/17 18:05 01/24/18 18:04 12/26/17 03:28 125 MLS/HR Lactated Ringer's 1,000 ml @ 125 mls/hr Q8H IV 12/25/17 18:05 01/24/18 18:04 Ibuprofen (Motrin Tab) 600 mg Q4H PRN PO 12/25/17 18:15 01/24/18 18:14 12/27/17 05:51 600 MG Promethazine HCl 25 mg/Sodium Chloride 51 ml @ 204 mls/hr Q4H PRN IV 12/25/17 18:15 01/24/18 18:14 Docusate Sodium (coLACE CAP) 100 mg BID PO 12/25/17 20:00 01/24/18 19:59 12/26/17 20:00 100 MG Magnesium Hydroxide (Milk Of Magnesia Susp) 30 ml HS PRN PO 12/25/17 18:15 01/24/18 18:14 12/26/17 20:00 30 ML Cocaine HCl (Supercream 0.870% Cr) BID PRN EXT 12/25/17 18:15 01/08/18 18:14 Lanolin (Lanolin Oint) PRN PRN EXT 12/25/17 18:15 01/24/18 18:14 Hydrocortisone Acetate (Anusol Hc Supp) 25 mg BID PRN GA 12/25/17 18:15 01/24/18 18:14 Benzocaine (Dermoplast Aero Spr) 1 appln PRN PRN EXT 12/25/17 18:15 01/24/18 18:14 Simethicone (Mylicon Chew Tab) 80 mg QID PO 12/25/17 20:51 01/24/18 20:59 12/26/17 20:00 80 MG Ketorolac Tromethamine (Toradol Inj) 30 mg Q6H PRN IV. 12/26/17 12:00 12/31/17 11:59 Oxycodone/ Acetaminophen (Percocet 5-325mg Tab) 1 tab Q4H PRN PO 12/26/17 12:00 01/09/18 11:59 12/26/17 12:02 1 TAB Oxycodone/ Acetaminophen (Percocet 5-325mg Tab) 2 tab Q4H PRN PO 12/26/17 12:00 01/09/18 11:59 Ondansetron HCl (Zofran Inj) 4 mg Q4H PRN IV 12/26/17 12:00 01/25/18 11:59 Diphenhydramine HCl (Benadryl Cap) 25 mg QID PRN PO 12/26/17 12:00 01/25/18 11:59 Diphenhydramine HCl (Benadryl Inj) 25 mg QID PRN IV 12/26/17 12:00 01/25/18 11:59 Cyclobenzaprine HCl (Flexeril Tab) 5 mg TID PO 12/27/17 08:00 01/26/18 07:59 UNV Assessment and Plan Problem List Medical Problems: (1) Left flank pain Status: Acute (2) Status: Acute (3) and not yet delivered in second trimester Status: Acute Post-Op Day#: 2 Continue Routine Care: Resident Physician Supervision Note: I was present with Dr. Sowmya Thomas during the history and exam. I discussed the case with the resident and agree with the findings and plan as documented in the note. Any exceptions or clarifications are listed here: [None] Documented By: Tanya Sierra - Vital signs reviewed and within normal limits - Encourage , ambulation - Will monitor and control pain with PRN analgesics - All questions and concerns addressed
[2017-12-27 07:40] LABS: HEMATOCRIT 34.2 % (37-47); HEMOGLOBIN 11.1 g/dL (12.0-16.0)
[2017-12-27] MEDS: CYCLOBENZAPRINE HCL 5 MG TAB PO SCH ×3 (08:00→20:00)
[2017-12-27] MEDS: DOCUSATE SODIUM 100 MG CAP PO SCH ×2 (08:47→20:20)
[2017-12-27] MEDS: SIMETHICONE 80 MG CHEW PO SCH ×4 (08:48→20:20)
[2017-12-27 08:50] VITALS: BP 124/74; PULSE 76; TEMP 36.5; O2SAT 98
[2017-12-27 16:15] VITALS: BP 118/66; PULSE 69; TEMP 36.3; O2SAT 99
[2017-12-27 20:30] VITALS: BP 122/71; PULSE 63; TEMP 36.5; O2SAT 98
[2017-12-27 23:35] VITALS: BP 114/66; PULSE 70; TEMP 36.6; O2SAT 98
[2017-12-28] MEDS: IBUPROFEN 600 MG TAB PO PRN ×2 (04:34→08:38)
--- NOTE | 2017-12-28 07:18 | Progress Note ---
Subjective Dec 28, 2017. Subjective conversation w/ patient, physical exam, lab review Ambulation: ambulating normally Voiding: no voiding problems Passing Gas: Yes Diet Tolerance: Regular Diet Lochia: Small Objective Vital Signs Date Time Temp Pulse Resp B/P (MAP) Pulse Ox O2 Delivery O2 Flow Rate FiO2 12/27/17 23:35 36.6 70 16 114/66 (82) 98 Room Air 12/27/17 20:30 36.5 63 16 122/71 (88) 98 Room Air 12/27/17 20:30 Room Air 12/27/17 16:15 99 Room Air 12/27/17 16:15 36.3 69 16 118/66 (83) 99 Room Air 12/27/17 08:50 98 Room Air 12/27/17 08:50 36.5 76 16 124/74 (91) 98 Room Air Physical Exam General Appearance: WELL-APPEARING Abdomen: non tender Fundus: Firm Incision Description: Clean, Dry & Intact Extremities: no calf tenderness Laboratory Results Last 24 Hours Test 12/27/17 07:31 Hemoglobin 11.1 g/dL Hematocrit 34.2 % Assessment and Plan Problem List Medical Problems: (1) Left flank pain Status: Acute (2) Status: Acute (3) and not yet delivered in second trimester Status: Acute Post-Op Day#: 3 Continue Routine Care: Home
[2017-12-28 07:20] VITALS: BP 124/71; PULSE 63; TEMP 36.5; O2SAT 100
[2017-12-28] MEDS: CYCLOBENZAPRINE HCL 5 MG TAB PO SCH (08:00)
[2017-12-28] MEDS: DOCUSATE SODIUM 100 MG CAP PO SCH (08:37)
[2017-12-28] MEDS: SIMETHICONE 80 MG CHEW PO SCH (08:38)
[2017-12-28 10:36] VITALS: BP_DIAS 71; PULSE 63; TEMP 36.5
--- NOTE | 2017-12-31 01:51 | Discharge Summary ---
Discharge Summary Date of Service Dec 31, 2017. Discharge Summary Admission Date: Dec 25, 2017 at 10:42 Discharge Date: Dec 28, 2017 Principal Diagnosis: Transverse lie, nonreassuring heart tones Procedures: External cephalic version, induction of labor, primary low transverse section Consultations: Anesthesiology Medication Reconciliation New Medications: Ibuprofen (Ibuprofen) 600 Mg Tab 600 MG PO Q4H PRN for Pain, LINO, Cramping, or Fever, #30 TAB 1 Refill Oxycodone/Acetaminophen 5MG/325MG (Percocet 5MG/325MG) Tab 1 TAB PO Q4H PRN for Pain - Pain Scale 1-5, #20 TAB 0 Refills PAIN Continued Medications: Multivit/Min/Iron/Fol Ac/Pren ( Vitamin) Tab 1 TAB PO [id number] Discharge Exam Please see documented exam on day of discharge in progress note. Hospital Course Patient was admitted from office with transverse lie of fetus. Successful external cephalic version. IOL started. Baby developed persistent category 3 tracing (nonreassuring heart tones). Primary low transverse section performed. Discharged POD#3. Total Time Spent: Less than 30 minutes This includes examination of the patient, discharge planning, medication reconciliation, and communication with other providers. Discharge Instructions Please refer to the electronic Patient Visit Report (Discharge Instructions) for additional information. Follow-Up 6 weeks office
== END 2017-12-28 10:45 | disposition home or self-care (01) | DRG 766 ==
LOC: C.LD 09:59 → C.OPB 09:59 → C.LD 10:42 → C.OPB 10:42 → C.OBG 20:51
PROVIDERS: ADMIT Obstetrics & Gynecology; ATTEND Obstetrics & Gynecology
PROC: 10S0XZZ Reposition Products of Conception, External Approach (ICD-10-PCS; 2017-12-25)
PROC: 3E033VJ Introduction of Other Hormone into Peripheral Vein, Percutaneous Approach (ICD-10-PCS; 2017-12-25)
PROC: 10D00Z1 Extraction of Products of Conception, Low, Open Approach (ICD-10-PCS; principal; 2017-12-25 16:22)
DX: O76 Abnormality in fetal heart rate and rhythm complicating labor and delivery (principal); O32.2XX0 Maternal care for transverse and oblique lie, not applicable or unspecified; Z3A.39 39 weeks gestation of pregnancy; Z37.0 Single live birth